=== PATIENT | female | born 1950 | race Caucasian/White ===

== ENCOUNTER 2017-09-17 19:36 | Inpatient (IN) | payer MEDICARE, OTHER ==
[~2017-09-17] VITALS: Ht 170.2 cm; Wt 102.0 kg
[2017-09-17 23:04] LABS: BASO % 0.2 % (0.0-2.0); GRAN # 4.5 (1.4-6.5); GRAN % 89.6 % (42.2-75.2); HEMATOCRIT 44.2 % (37.0-47.0); HEMOGLOBIN 14.4 g/dl (12.5-16.0); LYMPH # 0.4 (1.2-3.4); LYMPH % 7.2 % (20.0-51.0); MEAN CELL VOLUME 100 fl (80.0-100.0); MEAN CORPUSCULAR HEMOGLOBIN 33 pg (27.0-31.0); MEAN CORPUSCULAR HGB CONC 33 g/dl (33.0-37.0); MEAN PLATELET VOLUME 10.3 fl (7.4-10.4); MONO # 0.1 (0.1-0.6); MONO % 2.2 % (1.7-9.3); PLATELET COUNT 131 K/mm3 (130-400); RED BLOOD COUNT 4.43 M/mm3 (4.10-5.30); REDCELL DISTRIBUTION WIDTH-CV 14.1 % (11.5-14.5)
[2017-09-17 23:06] VITALS: BP 146/83; PULSE 108; TEMP 98.3
[2017-09-17 23:14] LABS: ALBUMIN 3.8 gm/dL (3.5-5.0); BILIRUBIN,TOTAL 0.5 mg/dL (0.0-1.0); CALCIUM 8.2 mg/dL (8.4-10.2); CREATININE, serum 0.6 mg/dL (0.52-1.25); POTASSIUM 3.6 mmol/L (3.4-5.0); TOTAL PROTEIN 6.6 gm/dL (6.4-8.2)
[2017-09-17 23:14] LABS: ARTERIAL BLD GAS O2 SATURATION 97.4 % (92-100); ARTERIAL BLD GAS TCO2 CT 35.5; ARTERIAL BLOOD GAS BASE EXCESS 5.2 (-2-2); ARTERIAL BLOOD GAS HCO3 33.5 meq/L (22-26); ARTERIAL BLOOD GAS pH 7.33 (7.35-7.45)
[2017-09-17 23:15] LABS: ARTERIAL BLOOD GAS PCO2 65.1 mmHg (35-45)
[2017-09-17 23:49] VITALS: O2SAT 95
[2017-09-18] VITALS (986 sets, daily range): BP systolic 123–154; BP diastolic 78–82; PULSE 82–96; TEMP 96.9–99.3; O2SAT 71–100
[2017-09-18 02:28] LABS: ARTERIAL BLD GAS O2 SATURATION 95.4 % (92-100); ARTERIAL BLD GAS TCO2 CT 32.4; ARTERIAL BLOOD GAS BASE EXCESS 3.2 (-2-2); ARTERIAL BLOOD GAS HCO3 30.6 meq/L (22-26); ARTERIAL BLOOD GAS PCO2 58.9 mmHg (35-45); ARTERIAL BLOOD GAS PO2 80.5 mmHg (80-100); ARTERIAL BLOOD GAS pH 7.33 (7.35-7.45)
[2017-09-18 06:11] LABS: HEMATOCRIT 41.6 % (37.0-47.0); HEMOGLOBIN 13.5 g/dl (12.5-16.0); MEAN CELL VOLUME 101 fl (80.0-100.0); MEAN CORPUSCULAR HEMOGLOBIN 33 pg (27.0-31.0); MEAN CORPUSCULAR HGB CONC 33 g/dl (33.0-37.0); MEAN PLATELET VOLUME 10.4 fl (7.4-10.4); PLATELET COUNT 129 K/mm3 (130-400); RED BLOOD COUNT 4.14 M/mm3 (4.10-5.30); REDCELL DISTRIBUTION WIDTH-CV 14.2 % (11.5-14.5)
[2017-09-18 06:29] LABS: CALCIUM 8.1 mg/dL (8.4-10.2); CREATININE, serum 0.53 mg/dL (0.52-1.25); POTASSIUM 3.8 mmol/L (3.4-5.0)
[2017-09-18 07:47] LABS: BAND 32 % (0-10); LYMPHOCYTE 12 % (20.0-51.0); NEUTROPHILS 54 % (42.0-75.2); PLATELET ESTIMATE NORMAL (NORMAL)
[2017-09-18 10:33] LABS: ARTERIAL BLD GAS O2 SATURATION 94.5 % (92-100); ARTERIAL BLD GAS TCO2 CT 29.8; ARTERIAL BLOOD GAS BASE EXCESS 0.6 (-2-2); ARTERIAL BLOOD GAS PCO2 56.7 mmHg (35-45); ARTERIAL BLOOD GAS PO2 77.9 mmHg (80-100); ARTERIAL BLOOD GAS pH 7.31 (7.35-7.45)
[2017-09-18 17:31] LABS: ARTERIAL BLD GAS TCO2 CT 28.3; ARTERIAL BLOOD GAS BASE EXCESS 0.2 (-2-2); ARTERIAL BLOOD GAS HCO3 26.8 meq/L (22-26); ARTERIAL BLOOD GAS PCO2 50.9 mmHg (35-45); ARTERIAL BLOOD GAS PO2 77.5 mmHg (80-100); ARTERIAL BLOOD GAS pH 7.34 (7.35-7.45)
[2017-09-19] VITALS (878 sets, daily range): BP systolic 119–168; BP diastolic 68–96; PULSE 70–91; TEMP 97.6–98.8; O2SAT 69–100
[2017-09-19 06:59] LABS: MUCOUS Present /lpf; PH 6 (5-8); SQUAMOUS EPITHELIAL 0-2 /hpf; URINE APPEARANCE Hazy; URINE BACTERIA Rare /hpf; URINE BILIRUBIN Negative (NEGATIVE); URINE BLOOD Negative (NEGATIVE); URINE COLOR Yellow; URINE GLUCOSE Negative (NEGATIVE); URINE KETONE Trace (NEGATIVE); URINE LEUKOCYTE ESTERASE Negative (NEGATIVE); URINE NITRATE Negative (NEGATIVE); URINE PROTEIN(semi-quant) 1+ (NEGATIVE); URINE RBC 0-2 /hpf; URINE UROBILINOGEN Negative (NEGATIVE)
[2017-09-19 07:56] LABS: COLLECTION METHOD CLEAN CATCH
[2017-09-19 10:27] LABS: ARTERIAL BLD GAS O2 SATURATION 93.5 % (92-100); ARTERIAL BLD GAS TCO2 CT 34.5; ARTERIAL BLOOD GAS BASE EXCESS 5.4 (-2-2); ARTERIAL BLOOD GAS HCO3 32.6 meq/L (22-26); ARTERIAL BLOOD GAS PCO2 59.1 mmHg (35-45); ARTERIAL BLOOD GAS PO2 68.9 mmHg (80-100); ARTERIAL BLOOD GAS pH 7.36 (7.35-7.45)
[2017-09-20] VITALS (941 sets, daily range): BP systolic 137–166; BP diastolic 78–92; PULSE 67–102; TEMP 97–98.3; O2SAT 30–100
[2017-09-20 05:42] LABS: ARTERIAL BLD GAS O2 SATURATION 92.5 % (92-100); ARTERIAL BLD GAS TCO2 CT 32.6; ARTERIAL BLOOD GAS BASE EXCESS 4.3 (-2-2); ARTERIAL BLOOD GAS HCO3 30.9 meq/L (22-26); ARTERIAL BLOOD GAS PCO2 54.3 mmHg (35-45); ARTERIAL BLOOD GAS pH 7.37 (7.35-7.45)
[2017-09-20 05:45] LABS: HEMATOCRIT 41.7 % (37.0-47.0); HEMOGLOBIN 13.3 g/dl (12.5-16.0); MEAN CELL VOLUME 101 fl (80.0-100.0); MEAN CORPUSCULAR HEMOGLOBIN 32 pg (27.0-31.0); MEAN CORPUSCULAR HGB CONC 32 g/dl (33.0-37.0); MEAN PLATELET VOLUME 10.8 fl (7.4-10.4); PLATELET COUNT 115 K/mm3 (130-400); RED BLOOD COUNT 4.13 M/mm3 (4.10-5.30); REDCELL DISTRIBUTION WIDTH-CV 13.6 % (11.5-14.5)
[2017-09-20 05:56] LABS: CREATININE, serum 0.62 mg/dL (0.52-1.25); POTASSIUM 3.9 mmol/L (3.4-5.0)
[2017-09-20 06:02] LABS: BAND 2 % (0-10); EOSINOPHIL 1 % (0-4); LYMPHOCYTE 13 % (20.0-51.0); METAMYELOCYTE 1 % (0-0); MYELOCYTE 1 % (0-0); NEUTROPHILS 82 % (42.0-75.2)
[2017-09-20 06:03] LABS: ANISOCYTOSIS 1+; HYPOCHROMIA 1+; POIKILOCYTOSIS 1+
[2017-09-20 06:04] LABS: TEAR DROP CELLS 1+
[2017-09-21] VITALS (714 sets, daily range): BP systolic 158–174; BP diastolic 91–101; PULSE 82–116; TEMP 97.6–98.4; O2SAT 83–100
[2017-09-21 07:38] LABS: ARTERIAL BLD GAS O2 SATURATION 94.8 % (92-100); ARTERIAL BLD GAS TCO2 CT 34.6; ARTERIAL BLOOD GAS BASE EXCESS 7.1 (-2-2); ARTERIAL BLOOD GAS PCO2 51.5 mmHg (35-45); ARTERIAL BLOOD GAS PO2 73.3 mmHg (80-100); ARTERIAL BLOOD GAS pH 7.43 (7.35-7.45)
[2017-09-22 01:54] VITALS: BP 162/89; PULSE 88; TEMP 97.8
[2017-09-22 04:15] VITALS: BP 163/100; PULSE 89; TEMP 97.5
[2017-09-22 08:13] VITALS: BP 168/89; PULSE 84; TEMP 07.8
[2017-09-22 11:43] VITALS: BP 113/68; BP 165/72; PULSE 69; PULSE 81; TEMP 97.5; TEMP 98
[2017-09-22 13:11] LABS: HEMATOCRIT 45.1 % (37.0-47.0); HEMOGLOBIN 15.2 g/dl (12.5-16.0); MEAN CORPUSCULAR HEMOGLOBIN 33 pg (27.0-31.0); MEAN CORPUSCULAR HGB CONC 34 g/dl (33.0-37.0); MEAN PLATELET VOLUME 10.1 fl (7.4-10.4); PLATELET COUNT 117 K/mm3 (130-400); RED BLOOD COUNT 4.68 M/mm3 (4.10-5.30); REDCELL DISTRIBUTION WIDTH-CV 13.2 % (11.5-14.5)
[2017-09-22 13:19] LABS: MEAN CELL VOLUME 96 fl (80.0-100.0)
[2017-09-22 13:22] LABS: CALCIUM 8.3 mg/dL (8.4-10.2); CREATININE, serum 0.6 mg/dL (0.52-1.25)
[2017-09-22 13:29] LABS: POTASSIUM 2.9 mmol/L (3.4-5.0)
[2017-09-22 14:09] LABS: BAND 6 % (0-10); LYMPHOCYTE 5 % (20.0-51.0); NEUTROPHILS 85 % (42.0-75.2)
[2017-09-22 14:11] LABS: PLATELET ESTIMATE DECREASED (NORMAL)
[2017-09-22 14:12] LABS: HYPOCHROMIA 1+
[2017-09-22 15:52] VITALS: BP 166/87; PULSE 102; TEMP 97.6
[2017-09-22 20:45] VITALS: BP 174/90; PULSE 97; TEMP 97.6
[2017-09-23] VITALS (7 sets, daily range): BP systolic 143–161; BP diastolic 71–91; PULSE 79–95; TEMP 97.4–98.3
[2017-09-23 06:26] LABS: HEMOGLOBIN 14.6 g/dl (12.5-16.0); MEAN CELL VOLUME 98 fl (80.0-100.0); MEAN CORPUSCULAR HEMOGLOBIN 33 pg (27.0-31.0); MEAN CORPUSCULAR HGB CONC 33 g/dl (33.0-37.0); MEAN PLATELET VOLUME 10.9 fl (7.4-10.4); PLATELET COUNT 128 K/mm3 (130-400); RED BLOOD COUNT 4.47 M/mm3 (4.10-5.30); REDCELL DISTRIBUTION WIDTH-CV 13.1 % (11.5-14.5)
[2017-09-23 06:54] LABS: CALCIUM 8.3 mg/dL (8.4-10.2); CREATININE, serum 0.6 mg/dL (0.52-1.25); POTASSIUM 3.4 mmol/L (3.4-5.0)
[2017-09-23 08:00] LABS: BAND 1 % (0-10); LYMPHOCYTE 16 % (20.0-51.0); METAMYELOCYTE 1 % (0-0); MYELOCYTE 1 % (0-0); NEUTROPHILS 73 % (42.0-75.2)
[2017-09-23 08:01] LABS: PLATELET ESTIMATE DECREASED (NORMAL)
[2017-09-24 03:33] VITALS: BP 148/76; PULSE 81; TEMP 97.5
[2017-09-24 07:24] LABS: HEMATOCRIT 43.7 % (37.0-47.0); HEMOGLOBIN 14.2 g/dl (12.5-16.0); MEAN CELL VOLUME 99 fl (80.0-100.0); MEAN CORPUSCULAR HEMOGLOBIN 32 pg (27.0-31.0); MEAN CORPUSCULAR HGB CONC 33 g/dl (33.0-37.0); MEAN PLATELET VOLUME 10.9 fl (7.4-10.4); PLATELET COUNT 115 K/mm3 (130-400); RED BLOOD COUNT 4.43 M/mm3 (4.10-5.30); REDCELL DISTRIBUTION WIDTH-CV 13.2 % (11.5-14.5)
[2017-09-24 07:39] LABS: CALCIUM 8.1 mg/dL (8.4-10.2); CREATININE, serum 0.57 mg/dL (0.52-1.25); POTASSIUM 3.2 mmol/L (3.4-5.0)
[2017-09-24 07:41] VITALS: BP 152/77; PULSE 80; TEMP 97.6
[2017-09-24 08:36] LABS: BAND 1 % (0-10); EOSINOPHIL 1 % (0-4); LYMPHOCYTE 23 % (20.0-51.0); NEUTROPHILS 72 % (42.0-75.2)
[2017-09-24 08:37] LABS: HYPOCHROMIA 1+; PLATELET ESTIMATE DECREASED (NORMAL)
[2017-09-24 11:39] VITALS: BP 149/81; PULSE 93; TEMP 97.7
[2017-09-24] MEDS ORDERED: NYSTATIN OR100 MU/ML PO (13:13)
[2017-09-24] MEDS ORDERED: PREDNISONE20 MG PO (13:15)
[2017-09-24] MEDS ORDERED: RT ADVAIR 228 DISKUS IH (13:16)
[2017-09-24] MEDS ORDERED: COMBIRESP IH (13:20)
[2017-09-24] MEDS ORDERED: NORVASC 5MG5 MG/TAB PO (13:20)
== END 2017-09-24 18:34 | disposition home or self-care (01) | DRG 193 ==
LOC: IMCU 19:36 → ICU 22:28 → MEDICAL 09-21 14:39
PROVIDERS: Family Medicine; Internal Medicine; Internal Medicine Critical Care Medicine; Nurse Practitioner; Nurse Practitioner Family; Physician Assistant
PROC: 02HV33Z Insertion of Infusion Device into Superior Vena Cava, Percutaneous Approach (ICD-10-PCS; principal; 2017-09-19)
DX: J10.08 Influenza due to other identified influenza virus with other specified pneumonia (principal); A41.89 Other specified sepsis; J96.01 Acute respiratory failure with hypoxia; J96.02 Acute respiratory failure with hypercapnia; B37.0 Candidal stomatitis; J15.9 Unspecified bacterial pneumonia; J44.1 Chronic obstructive pulmonary disease with (acute) exacerbation; J44.0 Chronic obstructive pulmonary disease with (acute) lower respiratory infection; F17.210 Nicotine dependence, cigarettes, uncomplicated; E87.6 Hypokalemia
CPT/HCPCS: 99223; 99223-AI; 99232-AI; 99233-AI; 99239; A4314; A9284; C1751; C1894; C9113; J0692; J1644; J1650; J1940; J1956; J2060; J2930; J3370; J7030; J7050; J7512